=== PATIENT | female | born 1975 | race Caucasian/White ===

== ENCOUNTER 2017-03-04 04:28 | Inpatient (IN) | payer OTHER ==
[~2017-03-04] VITALS: Ht 162.6 cm; Wt 86.0 kg
[2017-03-04] VITALS (7 sets, daily range): BP systolic 109–133; BP diastolic 69–84; PULSE 53–77; TEMP 36.2–37.1; O2SAT 91–97; Ht 162.6 cm; Wt 86.0 kg
[~2017-03-04 04:28] MED LIST: PRENTAB26 PO
[2017-03-04] MEDS ORDERED: ONDANSETRON INJ 2 MG/ML 2 ML VIAL IV STA (04:40)
[2017-03-04] MEDS ORDERED: MoRPHine SULFATE 4 MG/ML 1 ML CARP\\VIAL IV STA (04:40)
[2017-03-04] MEDS ORDERED: SODIUM CHLORIDE 0.9% 1000ML 1,000 ML IV STA (04:46)
[2017-03-04 05:04] LABS: BASO % 0.2 %; BASO ABS # 0.02 K/uL (0-0.2); COMPLETE YES; EOS % 1.1 %; IG% 0.2 %; LYMPH % 23.7 %; LYMPH ABS # 2.48 K/uL (1.2-3.4); MEAN CELL VOLUME 87.7 fL (80-100); MEAN CORPUSCULAR HEMOGLOBIN 28.8 pg (25-34); MEAN CORPUSCULAR HGB CONC 32.9 g/dl (32-36); MEAN PLATELET VOLUME 11.4 fL (7.4-10.4); MONO % 4.7 %; NEUT % 70.1 %; PLATELET COUNT 182 K/uL (130-400); RED BLOOD COUNT 5.13 M/uL (4.2-5.4); WHITE BLOOD COUNT 10.48 K/uL (4.8-10.8)
[2017-03-04] MEDS ORDERED: HYDROmorphone INJ 1 MG/ML SYR IV STA ×2 (05:17→06:33)
[2017-03-04] MEDS ORDERED: HYDROmorphone INJ 1 MG/ML SYR ONE (05:18)
[2017-03-04 05:23] LABS: ALT/SGPT 37 U/L (12-78); AST/SGOT 18 U/L (15-37); BLOOD UREA NITROGEN 16 mg/dl (7-18); BUN/CREATININE RATIO 19.5 (10-20); CALCIUM 9.2 mg/dl (8.5-10.1); CARBON DIOXIDE 25 mmol/L (21-32); CHLORIDE 109 mmol/L (98-107); GLUCOSE 120 mg/dl (70-99); POTASSIUM 3.9 mmol/L (3.5-5.1); SODIUM 140 mmol/L (136-145)
[2017-03-04 05:28] LABS: ALKALINE PHOSPHATASE 87 U/L (45-117)
--- NOTE | 2017-03-04 06:30 | DIAGNOSTIC IMAGING REPORT ---
CHEST ONE VIEW PORTABLE CLINICAL HISTORY: CHEST PAIN dyspnea COMPARISON STUDY: No previous studies for comparison. FINDINGS: The bones soft tissues and hemidiaphragms are normal. The cardiomediastinal silhouette is normal. The lungs are clear. The pulmonary vasculature is normal. IMPRESSION: Negative chest. The above report was generated using voice recognition software. It may contain grammatical, syntax or spelling errors. Electronically signed by: Jj Saeed M.D. 03/04/2017 6:28 AM Dictated Date/Time: 03/04/2017 6:28 AM
--- NOTE | 2017-03-04 06:45 | DIAGNOSTIC IMAGING REPORT ---
BILIARY ULTRASOUND CLINICAL HISTORY: ] Quadrant abdominal pain COMPARISON STUDY: No previous studies for comparison. FINDINGS: Pancreas appears sonographically normal. No focal hepatic masses are visualized. The gallbladder reveals a 18 mm shadowing calculus within the neck. There is borderline gallbladder wall thickening with trace pericholecystic edema. There is no ductal dilatation. The common bile duct measures 6 mm. The gallbladder is mildly distended. IMPRESSION: 1. Cholelithiasis. Mild gallbladder distention. Borderline gallbladder wall thickening with trace pericholecystic fluid/edema. In the proper clinical setting, this may indicate acute cholecystitis. Correlation with a nuclear medicine hepatobiliary study could be obtained in follow-up to assess cystic duct patency , as deemed clinically indicated Electronically signed by: Barry Velez M.D. 03/04/2017 6:44 AM Dictated Date/Time: 03/04/2017 6:41 AM
--- NOTE | 2017-03-04 07:09 | History and Physical ---
History & Physical Date Mar 04, 2017. Chief Complaint Right upper quadrant abdominal pain, Nausea History of Present Illness Patricia Ham is a 71 year old woman with no major medical problems who presents with right upper quadrant pain. Patient states she has been in her usual state of health without issues. Last night ate a pork chop for dinner; woke up at 2am this morning with pain in the epigastric / chest area which radiated back to the right scapula. Associated with nausea, no vomiting. The pain continued and became worse, so she presented to the ED for evaluation. Endorsing SOB with deep inspiration due to the pain. Denies fever, chills, headaches, dizziness, vision changes, cough / cold symptoms, appetite or weight changes, dysuria or urinary symptoms, constipation / diarrhea, melena / hematochezia, pain / numbness / swelling / tingling in extremities. Patient takes no medications on a daily basis. She is a 1/2ppd smoker. She has never had any surgeries before. Past Medical/Surgical History Medical History: -Tobacco use disorder Surgical History: -None prior Allergies Coded Allergies: No Known Allergies (Verified , UNKNOWN, 03/04/17) Home Medications No Active Prescriptions or Reported Meds Physical Examination Skin: warm/dry Eyes: normal inspection, sclerae normal Head: normocephalic, atraumatic Neck: supple Respiratory/Chest: lungs clear, normal breath sounds, no respiratory distress Cardiovascular: regular rate, rhythm, no edema Abdomen / GI: normal bowel sounds, + pertinent finding (Soft, obese, tender to palpation in midline epigastric and right upper quadrant area, +Cash's sign, no rebound / guarding) Back: normal inspection Neurologic/Psych: alert, oriented x 3 Addiitonal Comments: Labs: WBC 10.4, Hgb 14.8, Hct 45.0, plt 182 Na 140, K 3.9, Cl 109, CO2 25, BUN 16 / Cr 0.8, Glucose 120 Tbili 0.3 (direct < 0.1), AST 18, ALT 37, Alk phos 87, Lipase 176 Troponin <0.015 Images: 03/04/17 CXR: No acute abnormalities 03/04/17 RUQ U/S: IMPRESSION: 1. Cholelithiasis. Mild gallbladder distention. Borderline gallbladder wall thickening with trace pericholecystic fluid/edema. In the proper clinical setting, this may indicate acute cholecystitis. Correlation with a nuclear medicine hepatobiliary study could be obtained in follow-up to assess cystic duct patency, as deemed clinically indicated Diagnosis Acute cholecystitis, cholelithiasis ASA Classification: ASA Class I Plan of Treatment Assessment: Patricia Ham is a 41 year old woman with no major medical problems who presents with RUQ pain and ultrasound findings consistent with acute cholecystitis and cholelithiasis. She is afebrile, vitals are stable and normal. She does not have a leukocytosis or elevation in bilirubin / LFTs. She has a positive Cash's sign and continued RUQ pain, tender to palpation. Plan: -Admit to General Surgery service -Will schedule for laparoscopic, possible open cholecystectomy -NPO for procedure, IVF hydration -Pain and nausea control as needed Barb Groves MD 03/04/17
[2017-03-04] MEDS ORDERED: HYDROmorphone INJ 1 MG/ML SYR IV PRN (07:15)
[2017-03-04 08:29] LABS: PREG INTERNAL NEGATIVE QC NEG CLEAR BACKGROUND; PREG INTERNAL POSITIVE QC POS CONTROL LINE
[2017-03-04] MEDS: D5W AND 1/2NSS + 20MEQ KCL 1,000 ML IV SCH ×2 (10:19→16:44)
[2017-03-04] MEDS ORDERED: NURSING VERBAL MED ORDER ONE (10:45)
[2017-03-04] MEDS ORDERED: CEFOXITIN IV 1,000 MG in DEXTROSE 5% 50ML 50 ML IV STA (10:49)
[2017-03-04] MEDS ORDERED: ONDANSETRON INJ 2 MG/ML 2 ML VIAL IV PRN (11:45)
[2017-03-04] MEDS ORDERED: EpHEDrine SULFATE INJ 50 MG/ML AMP IV PRN (11:45)
[2017-03-04] MEDS ORDERED: PHENYLEPHRINE 100MCG/ML 5ML SYR IV PRN (11:45)
[2017-03-04] MEDS ORDERED: HYDROmorphone INJ 2 MG/ML SYR/VIAL IV PRN (11:45)
[2017-03-04] MEDS ORDERED: ATROPINE SULFATE 0.1 MG/ML 5ML SYR IV PRN (11:45)
[2017-03-04] MEDS ORDERED: LIDOCAINE HCL 1% 20 ML VIAL ONE (11:49)
[2017-03-04] MEDS ORDERED: BUPIVACAINE 0.5 % 5 MG/1 ML MPF 30ML VIAL ONE (11:49)
[2017-03-04] MEDS ORDERED: KETOROLAC TROMETHAMINE 30 MG/ML VIAL ONE (11:56)
[2017-03-04] MEDS ORDERED: LIDOCAINE HCL 2% 2 ML VIAL (20MG/ML) ONE (12:08)
[2017-03-04] MEDS ORDERED: PROPOFOL IV EMULSION 10 MG/ML 20 ML VIAL IV ONE (12:08)
[2017-03-04] MEDS ORDERED: ROCURONIUM BROMIDE 10 MG/ML 5 ML VIAL ONE (12:08)
[2017-03-04] MEDS ORDERED: FENTANYL CITRATE INJ 50 MCG/1 ML 2 ML VIAL ONE ×2 (12:09→12:30)
[2017-03-04] MEDS ORDERED: MIDAZOLAM HCL 1 MG/ML 2ML VIAL ONE (12:09)
[2017-03-04] MEDS ORDERED: ONDANSETRON INJ 2 MG/ML 2 ML VIAL ONE ×2 (12:48→15:13)
[2017-03-04] MEDS ORDERED: DEXAMETHASONE SOD INJ 4 MG/ML VIAL ONE (12:48)
[2017-03-04] MEDS ORDERED: GLYCOPYRROLATE INJ 0.2 MG/ML VIAL ONE (12:48)
[2017-03-04] MEDS ORDERED: NEOSTIGMINE METHYLSULFATE 5 MG/5 ML SYR ONE (12:48)
[2017-03-04] MEDS ORDERED: FLOSEAL HEMOSTATIC MATRIX 10ML TOP ONE (14:56)
[2017-03-04] MEDS ORDERED: BUPIVACAINE 0.5 % 5 MG/1 ML MPF 30ML VIAL INJ ONE (15:32)
[2017-03-04] MEDS ORDERED: LIDOCAINE HCL 1% MPF 5 ML VIAL INJ ONE (15:36)
--- NOTE | 2017-03-04 15:44 | [facility] Operative Report ---
Operative Report Operative Date Mar 04, 2017. Pre-Operative Diagnosis Acute cholecystitis, cholelithiasis Post-Operative Diagnosis Same as preoperative diagnosis Procedure(s) Performed Laparoscopic Cholecystectomy Surgeon Dr. Barb Groves [employer] Surgeon(s) Dr. Jj Garvin Estimated Blood Loss 50 mL Findings Gallbladder was edematous, distended, lots of adhesions covering; liver appeared normal. Large gallstone palpable in gallbladder. Fluids 1300cc Specimens Permanent specimens A: Gallbladder and contents Drains None Anesthesia GETA, 40ml of local anesthetic (1% Lidocaine + 1/2% Marcaine, 50/50 mix) Complication(s) None Disposition Recovery Room / PACU Indications Patricia Ham is a 41 year old woman who presents with symptoms and imaging consistent with acute cholecystitis with cholelithiasis. Indications, risks, benefits and potential complications of laparoscopic cholecystectomy, possible open, possible intraoperative cholangiogram discussed at length with the patient. All questions answered to apparent satisfaction. Patient chose to proceed with the operation and freely signed the consent form. Description of Procedure Patient was brought to the operating room and identified as Patricia Ham , 79. She was placed on the operating table in supine position. Anesthesia was induced and the patient was intubated without difficulty. The abdomen was prepped and draped in the usual sterile fashion. An incision was made at the umbilicus and carried down through subcutaneous tissue. Fascia was identified and two Wendy clamps were placed for upward traction. The fascia was opened using sharp dissection. Peritoneum was then identified and elevated using two hemostats. The peritoneum was incised using Metzenbaum scissors to enter the abdomen. A 12mm Null port was placed and insufflation established. The abdomen was explored. The gallbladder was observed to be edematous and distended, with omental adhesions covering the surface. The liver appeared normal. A 5mm port was placed under direct vision subxiphoid. Two more 5mm ports were placed approximately 4cm below along the right costal margin. The patient was positioned in the reverse Trendelenburg position with left side down to expose the area of dissection. The gallbladder dome was grasped and retracted cranially. The neck of the gallbladder was grasped and retracted laterally. Extensive omental adhesions were taken down gently using blunt dissection. A branch of the cystic artery was found overlying the cystic duct; this was clipped and cut. The cystic duct was dissected out deep to this structure. Once verified to be the cystic duct, it was clipped and cut. The cystic artery was found coursing medially to the cystic duct; this was carefully dissected out using [place] graspers until clearly shown to lead only into the gallbladder. The cystic artery was then clipped and cut. Next the gallbladder was taken off the liver bed using electrocautery. The 10mm endoscope was switched out for the 5mm endoscope, and the 10mm Endocatch bag was placed in the abdomen. The gallbladder was placed in the Endocatch bag and removed from the abdomen, to be passed off the field to be taken to pathology. The gallbladder fossa was inspected; Hemostasis was achieved with electrocautery and Floseal application. The area was thoroughly irrigated and evacuated of fluid. Hemostasis was again verified. The ports were then removed under direct vision and insufflation was released. The sponge and instrument counts were verified to be correct x 2 by the nurse in charge. Fascia at the umbilical port was closed using 0 Vicryl in figure of eight fashion. Skin was closed at all ports using Monocryl, and Dermabond was applied. The patient was then awakened from anesthesia, extubated without difficulty and was taken to PACU, having suffered no untoward events. I attest to the content of the Intraoperative Record and any orders documented therein. Any exceptions are noted below.
[2017-03-04] MEDS ORDERED: OXYCODONE/ACETAMINOPHEN 5-325 TAB PO PRN (15:45)
--- NOTE | 2017-03-04 16:03 | Anesthesiology Progress Note ---
Anesthesia Post Op Note Date & Time Mar 04, 2017 at 16:02 Vital Signs Pain Intensity: 0 Vital Signs Past 12 Hours Date Time Temp Pulse Resp B/P (MAP) Pulse Ox O2 Delivery O2 Flow Rate FiO2 03/04/17 15:50 88 16 125/75 98 Oxymask 10 03/04/17 15:40 71 18 128/71 98 Oxymask 10 03/04/17 15:31 36.1 82 16 129/75 98 Oxymask 10 03/04/17 09:03 97 Room Air 03/04/17 08:37 36.8 71 18 117/81 97 Room Air 03/04/17 08:04 66 22 128/87 96 Room Air 03/04/17 07:27 70 03/04/17 07:01 47 14 127/88 97 Room Air 03/04/17 06:00 46 20 141/71 96 Room Air 03/04/17 05:04 48 14 124/81 97 Room Air 03/04/17 04:43 51 03/04/17 04:41 Room Air 03/04/17 04:41 Room Air 03/04/17 04:36 Room Air 03/04/17 04:36 36.8 56 18 161/99 100 Room Air Notes Mental Status: alert / awake / arousable, participated in evaluation Pt Amnestic to Procedure: Yes Nausea / Vomiting: adequately controlled Pain: adequately controlled Airway Patency, RR, SpO2: stable & adequate BP & HR: stable & adequate Hydration State: stable & adequate Anesthetic Complications: no major complications apparent
[2017-03-04] MEDS: OXYCODONE/ACETAMINOPHEN 5-325 TAB PO PRN (20:19)
[2017-03-05] MEDS: D5W AND 1/2NSS + 20MEQ KCL 1,000 ML IV SCH ×2 (01:21→08:48)
[2017-03-05 04:34] VITALS: BP 120/80; PULSE 57; TEMP 36.8; O2SAT 94
[2017-03-05] MEDS: OXYCODONE/ACETAMINOPHEN 5-325 TAB PO PRN ×3 (04:48→16:00)
[2017-03-05 07:46] VITALS: BP 106/71; PULSE 67; TEMP 36.8; O2SAT 93
--- NOTE | 2017-03-05 07:59 | Surgery Progress Note ---
Surgery Progress Note Date of Service Mar 05, 2017. Subjective Post OP Day: 1 Patient examined at bedside this morning. Afebrile, vitals stable on room air overnight, no acute events. Pain is adequately controlled. Tolerating small amounts of food without N/V. Ambulating and voiding without difficulty. Objective Vital Signs: Date Time Temp Pulse Resp B/P (MAP) Pulse Ox O2 Delivery O2 Flow Rate FiO2 03/05/17 07:15 Room Air 03/05/17 04:34 36.8 57 16 120/80 (93) 94 Room Air 03/04/17 23:10 36.9 53 16 109/69 (82) 91 Room Air 03/04/17 20:02 36.2 58 16 127/78 (94) 93 Room Air 03/04/17 19:30 Room Air 03/04/17 18:29 36.8 57 16 123/81 (95) 95 Room Air 03/04/17 17:18 36.6 62 16 133/84 (100) 92 Room Air 03/04/17 16:42 37.1 77 15 120/77 (91) 93 Room Air 03/04/17 16:42 93 Room Air 03/04/17 16:30 68 16 125/71 94 Room Air 03/04/17 16:15 71 16 123/73 94 Room Air 03/04/17 16:00 36.3 79 18 117/72 94 Room Air 03/04/17 15:50 88 16 125/75 98 Oxymask 10 03/04/17 15:40 71 18 128/71 98 Oxymask 10 03/04/17 15:31 36.1 82 16 129/75 98 Oxymask 10 03/04/17 09:03 97 Room Air 03/04/17 08:37 36.8 71 18 117/81 97 Room Air 03/04/17 08:04 66 22 128/87 96 Room Air General Appearance: WD/WN, no apparent distress Head: normocephalic, atraumatic Neck: supple Respiratory/Chest: normal breath sounds, no respiratory distress Cardiovascular: regular rate, rhythm Abdomen: normal bowel sounds, non distended, soft, + tenderness (appropriately tender to palpation) Incision(s): clean, dry, intact Assessment & Plan Patricia Ham is a 41 year old woman admitted with acute cholecystitis and a large gallstone who is now POD 1 s/p laparoscopic cholecystectomy. There were no complications, patient tolerated the procedure well. -Pain control as needed -Regular diet as tolerated -Discontinue IVF when tolerating adequate PO intake -Encouraged ambulation -Likely discharge today depending on how she does with breakfast -Will follow up in surgery clinic in 1 to 2 weeks for post op check Barb Groves MD 03/05/17
--- NOTE | 2017-03-05 09:38 | Anesthesiology Progress Note ---
Anesthesia Post Op Note Date & Time Mar 05, 2017 at 09:38 Vital Signs Pain Intensity: 7.0 Vital Signs Past 12 Hours Date Time Temp Pulse Resp B/P (MAP) Pulse Ox O2 Delivery O2 Flow Rate FiO2 03/05/17 07:46 36.8 67 16 106/71 (83) 93 Room Air 03/05/17 07:15 Room Air 03/05/17 04:34 36.8 57 16 120/80 (93) 94 Room Air 03/04/17 23:10 36.9 53 16 109/69 (82) 91 Room Air Notes Mental Status: alert / awake / arousable, participated in evaluation Pt Amnestic to Procedure: Yes Nausea / Vomiting: adequately controlled Pain: adequately controlled Airway Patency, RR, SpO2: stable & adequate BP & HR: stable & adequate Hydration State: stable & adequate Anesthetic Complications: no major complications apparent
[2017-03-05 11:10] VITALS: BP 116/78; PULSE 50; TEMP 36.7; O2SAT 94
--- NOTE | 2017-03-05 13:10 | Discharge Instructions ---
Discharge Instructions Date of Service Mar 05, 2017. Admission Reason for Admission: Acute Cholecystitis Discharge Discharge Diagnosis / Problem: same Discharge Goals Goal(s): Decrease discomfort, Improve function Activity Recommendations Activity Limitations: as noted below No strenuous activity or heavy lifting over 10 pounds for 2 weeks Walking and light activity is encouraged No submerging incisions underwater for 2 weeks (No swimming, hot tubs or bathing ) No driving while you are taking narcotic pain medication or until you are pain free . Instructions / Follow-Up Instructions / Follow-Up You may shower in 24 hours, gently clean incisions with soap and water Surgical glue (purple) will come off on its own You will need follow-up with Dr. Groves in 1-2 weeks, please call office at to make an appointment Current Hospital Diet Patient's current hospital diet: Regular Diet Discharge Diet Recommended Diet: Regular Diet Procedures Procedures Performed: Laparoscopic Cholecystectomy Pending Studies Studies pending at discharge: yes List of pending studies: Gallbladder pathology- will be reviewed at follow-up appointment Medical Emergencies . Who to Call and When: Medical Emergencies: If at any time you feel your situation is an emergency, please call 911 immediately. . Non-Emergent Contact Non-Emergency issues call your: Primary Care Provider, Surgeon Call Non-Emergent contact if: you have a fever, temperature is above 101.5, your pain is not controlled, your pain is worsening, wound has increased drainage, wound has increased redness, wound has increased pain . "Provider Documentation" section prepared by Monica Mi. . VTE Core Measure Inpt VTE Proph given/why not?: SCD's [place] Drug Monitoring Program Search Results: patient reviewed within database, no issues identified
[2017-03-05 15:18] VITALS: BP 130/94; PULSE 60; TEMP 36.5; O2SAT 95
[2017-03-05] MEDS ORDERED: OXYC-57 PO (15:37)
[2017-03-05 16:02] VITALS: BP 130/94; PULSE 60; TEMP 36.5; O2SAT 95
--- NOTE | 2017-03-08 11:36 | Discharge Summary ---
Discharge Summary Dates Admission Date / Time: Mar 04, 2017 at 07:11 Discharge Date: Mar 05, 2017 Dispostion / Condition Discharge Disposition: Home Condition at Discharge: Good Principal Diagnosis (1) Cholelithiasis (2) Acute cholecystitis Problem List (1) Acute cholecystitis (2) Cholelithiasis Consultations / Procedures Consultations: None Procedures: Laparoscopic cholecystectomy Pending Studies / Follow-Up gallbladder pathology-to be reviewed at follow-up visit Medication Reconciliation New Medications: Oxycodone/Acetaminophen 5MG/325MG (Percocet 5MG/325MG) Tab 1-2 TABLETS PO Q4H PRN for Pain, #30 TAB Admission HPI Per the Admitting provider: Patricia Ham is a 71 year old woman with no major medical problems who presents with right upper quadrant pain. Patient states she has been in her usual state of health without issues. Last night ate a pork chop for dinner; woke up at 2am this morning with pain in the epigastric / chest area which radiated back to the right scapula. Associated with nausea, no vomiting. The pain continued and became worse, so she presented to the ED for evaluation. Endorsing SOB with deep inspiration due to the pain. Denies fever, chills, headaches, dizziness, vision changes, cough / cold symptoms, appetite or weight changes, dysuria or urinary symptoms, constipation / diarrhea, melena / hematochezia, pain / numbness / swelling / tingling in extremities. Patient takes no medications on a daily basis. She is a 1/2ppd smoker. She has never had any surgeries before. Hospital Course (1) Acute cholecystitis Patient was taken to operating room for laparoscopic cholecystectomy. She tolerated procedure well without any complications. The patient was then transferred to recovery room in stable condition and then to them medical/ surgical floor for post operative care. Post operative orders included IV fluids, clear liquid diet, IV pain medication and PO Percocet as needed for pain and SCDs. The evening of the surgery she was doing okay with moderate pain and only taking in some liquids. Advanced to full liquids for dinner and then as tolerated. POD # 1 she was not taking much by mouth but pain was controlled. Ambulating and urinating without difficulty. Diet was advanced to regular diet in which she tolerated. She was discharged in the afternoon of POD # 1 . Overall hospital course was uneventful. (2) Cholelithiasis please see above Discharge Instructions as given to patient Copies To Primary Care Provider: Lonnie Rm III, M.D.. Problem Qualifiers (1) Cholelithiasis: Cholecystitis presence: with cholecystitis Cholecystitis acuity: acute Biliary obstruction: without biliary obstruction
== END 2017-03-05 16:25 | disposition home or self-care (01) | DRG 419 ==
LOC: C.EDB 04:29 → C.MSW 07:11 → ENRESERV 08:05
PROVIDERS: ADMIT Student in an Organized Health Care Education/Training Program; ATTEND Student in an Organized Health Care Education/Training Program
PROC: 0FT44ZZ Resection of Gallbladder, Percutaneous Endoscopic Approach (ICD-10-PCS; principal; 2017-03-04 12:00)
DX: K80.00 Calculus of gallbladder with acute cholecystitis without obstruction (principal); F17.200 Nicotine dependence, unspecified, uncomplicated